=== PATIENT | female | born 1975 | race Caucasian/White ===

== ENCOUNTER 2020-02-02 21:40 | Emergency (ER) | payer MEDICAID ==
--- NOTE | 2020-02-02 22:13 | ED ---
General Adult HPI - General Source: patient Mode of arrival: ambulatory Limitations: no limitations <Kirby Zapata - Last Filed: 02/02/20 23:40> <Crissy Dunne - Last Filed: 02/04/20 01:29> - General Chief complaint: Neuro Symptoms/Deficit Stated complaint: Headache, Facial numbness Time Seen by Provider: 02/02/20 22:01 - History of Present Illness Initial comments: Patient presents the ED with her boyfriend for evaluation. Patient states that she has had worsening left-sided facial drooping since yesterday morning. Patient also states that she has had an intermittent headache since yesterday, although she denies having a headache currently. Patient denies any other area focal weakness. Patient denies trauma or injury, sudden onset of headache, LOC, neck pain or stiffness, fever or chills, visual changes, speech difficulty, dizziness, otalgia, chest pain, dyspnea, palpitations, nausea/vomiting, a bdominal pain, or any other symptoms or complaints. (Kirby aZpata) - Related Data Previous Rx's Medication Instructions Recorded amLODIPine [Norvasc] 5 mg PO DAILY #30 tab 02/03/20 predniSONE [Deltasone] 60 mg PO DAILY #6 tab 02/03/20 valACYclovir HCL [Valacyclovir] 1,000 mg PO TID #21 tab 02/03/20 Allergies Allergy/AdvReac Type Severity Reaction Status Date / Time No Known Allergies Allergy Verified 02/02/20 21:50 Review of Systems ROS Other: All systems not noted in ROS Statement are negative. <Kirby Zapata - Last Filed: 02/02/20 23:40> ROS Other: All systems not noted in ROS Statement are negative. <Crissy Dunne - Last Filed: 02/04/20 01:29> ROS Statement: Those systems with pertinent positive or pertinent negative responses have been documented in the HPI. Past Medical History Past Medical History: No Reported History History of Any Multi-Drug Resistant Organisms: None Reported Past Surgical History: Section, Tonsillectomy Additional Past Surgical History / Comment(s): basal cell carinoma removal face 2017 Past Psychological History: No Psychological Hx Reported, Anxiety Smoking Status: Former smoker Past Alcohol Use History: Rare Past Drug Use History: None Reported <Kirby Zapata - Last Filed: 02/02/20 23:40> General Exam Limitations: no limitations General appearance: alert, in no apparent distress Head exam: Present: atraumatic, normocephalic Eye exam: Present: normal appearance, PERRL, EOMI ENT exam: Present: mucous membranes moist, TM's normal bilaterally Neck exam: Present: other (No nuchal rigidity; trachea is in midline). Absent: tenderness, meningismus Respiratory exam: Present: normal lung sounds bilaterally. Absent: respiratory distress, wheezes, rales, rhonchi Cardiovascular Exam: Present: regular rate, normal rhythm, normal heart sounds, other (Normal radial pulses bilaterally) GI/Abdominal exam: Present: soft. Absent: distended, tenderness Extremities exam: Present: full ROM. Absent: tenderness, pedal edema Neurological exam: Present: alert, oriented X3, other (Cranial nerves are all intact other than a complete left facial nerve palsy with left forehead invol vement; patient has 5 out of 5 strength in all 4 extremities; patient has no sensory deficit) Psychiatric exam: Present: normal affect, normal mood Skin exam: Present: warm, dry, intact, normal color <Kirby Zapata - Last Filed: 02/02/20 23:40> Neck exam: Present: other Neurological exam: Present: other <Crissy Dunne - Last Filed: 02/04/20 01:29> Course <Kirby Zapata - Last Filed: 02/02/20 23:40> Vital Signs 02/02/20 02/02/20 02/02/20 21:43 22:56 23:47 Temperature 97.9 F Pulse Rate 100 80 87 Respiratory 20 18 18 Rate Blood Pressure 199/102 158/92 160/87 O2 Sat by Pulse 99 98 98 Oximetry 02/03/20 02/03/20 00:00 01:33 Temperature 97 F L Pulse Rate 82 78 Respiratory 16 18 Rate Blood Pressure 153/83 150/96 O2 Sat by Pulse 98 97 Oximetry - Reevaluation(s) Reevaluation #1: 02/02/20 23:47 Patient's neurological exam remains unchanged and is 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 Patient's labs are fairly unremarkable. Given the patient's abnormal noncontrast CT report, a CT angiogram head was ordered per the radiologist's recommendations. Patient was endorsed to Dr. Dunne at this time given ED shift change. Dr. Dunne to follow-up with the patient's CT angiogram head results and to take over care of the patient at this time. (Kirby Zapata) EKG Findings - EKG Comments: EKG Findings:: Normal sinus rhythm, ventricular rate of 76 bpm, no ectopy, normal IL and QRS intervals, normal QT interval, normal axis, no ST or T-wave abnormality <Kirby Zapata - Last Filed: 02/02/20 23:40> Medical Decision Making - Lab Data Result diagrams: 02/02/20 21:58 02/02/20 21:58 - Radiology Data Radiology results: report reviewed (Noncontrast head CT: Serpiginous high attenuation structures in the right frontal lobe consistent with large vascular malformation and large dural veins; there is adjacent encephalomalacia involving right frontal lobe; no acute hemorrhage; CT angiogram would be confirmatory for further evaluation if clinically indicated) <Kirby Zapata - Last Filed: 02/02/20 23:40> - Lab Data Result diagrams: 02/02/20 21:58 02/02/20 21:58 <Crissy Dunne - Last Filed: 02/04/20 01:29> - Medical Decision Making Upon shift sign out, I did evaluate the patient myself. She does present with symptoms of left complete facial paresis. Laboratory studies had been performed and the patient was sent over for CT angiogram after abnormal CT findings. Dr. Zapata did discuss the results with the patient and the need to be sent for CT angios. I did update the patient in regards to the CT angiography results. It does demonstrate a large AVM measuring 3.8 x 2.9 cm. It is at the base of the right frontal lobe above the right orbit with large draining vessels. No evidence of tumor. Adjacent right frontal lobe encephalomalacia. I then called and discussed case with Dr. Romero who is the neurointensivist liaison planner. He does recommend that the patient be transferred to for blood pressure control, MRI and angiography. I discussed the recommendations from Dr. Romero however the patient reports that she would prefer to go home at this time. I did discuss the risks of leaving without further evaluation to include permanent disability and even . She is of sound mind and capable of making her own decisions. Family is at bedside and agrees with her decision. The patient was seen during the [facility] emergency due to the Covid pandemic. The patient did understand this. I informed her of the imperative nature that she follow-up in regards to these abnormal CT findings. Dr. Romero does not believe that the patient's facial paralysis is related to the AVM and therefore to treat as a Ortega's palsy. The patient was given a dose of prednisone and Valtrex in the emergency room. I did prescribe the patient's these prescriptions as well. Blood pressure is high in the emergency room. Dr. Wolf did recommend that it be below 160. Because of this I will start patient on Norvasc. I informed her that she needs to keep a blood pressure log and follow up with her primary care physician to see if this medication needs to be adjusted. I did give her follow-up information for neurologist out of [place] as this is where she is requesting to seek care. I informed the patient that if she has any new or worsening symptoms or does agree to hospital transfer, to return to the emergency department. Patient was then discharged home in stable condition (Crissy Dunne) - Lab Data Lab Results 02/02/20 02/02/20 Range/Units 21:58 21:58 WBC 13.5 H (3.8-10.6) k/uL RBC 5.21 (3.80-5.40) m/uL Hgb 14.1 (11.4-16.0) gm/dL Hct 42.7 (34.0-46.0) % MCV 81.9 (80.0-100.0) fL MCH 27.1 (25.0-35.0) pg MCHC 33.1 (31.0-37.0) g/dL RDW 14.1 (11.5-15.5) % Plt Count 407 (150-450) k/uL Neutrophils % 68 % Lymphocytes % 21 % Monocytes % 7 % Eosinophils % 2 % Basophils % 1 % Neutrophils # 9.2 H (1.3-7.7) k/uL Lymphocytes # 2.9 (1.0-4.8) k/uL Monocytes # 0.9 (0-1.0) k/uL Eosinophils # 0.2 (0-0.7) k/uL Basophils # 0.1 (0-0.2) k/uL Sodium 138 (137-145) mmol/L Potassium 3.8 (3.5-5.1) mmol/L Chloride 104 (98-107) mmol/L Carbon Dioxide 26 (22-30) mmol/L Anion Gap 8 mmol/L BUN 12 (7-17) mg/dL Creatinine 0.73 (0.52-1.04) mg/dL Est GFR (CKD-EPI)AfAm >90 (>60 ml/min/1.73 sqM) Est GFR (CKD-EPI)NonAf >90 (>60 ml/min/1.73 sqM) Glucose 103 H (74-99) mg/dL Calcium 10.0 (8.4-10.2) mg/dL Total Bilirubin 0.4 (0.2-1.3) mg/dL AST 28 (14-36) U/L ALT 31 (4-34) U/L Alkaline Phosphatase 125 (38-126) U/L Total Protein 8.2 (6.3-8.2) g/dL Albumin 4.6 (3.5-5.0) g/dL Disposition <Kirby Zapata - Last Filed: 02/02/20 23:40> Is patient prescribed a controlled substance at d/c from ED?: No Time of Disposition: 01:27 <Crissy Dunne - Last Filed: 02/04/20 01:29> Clinical Impression: Ortega's palsy, AVM (arteriovenous malformation) Disposition: HOME SELF-CARE Condition: Stable Instructions (If sedation given, give patient instructions): Ortega Palsy (ED) Additional Instructions: I did recommend transfer to [facility]. You must follow-up with a neurosurgeon in regards to your newly diagnosed AVM. Take the blood pressure medication daily and keep a log of your measured blood pressures. Return to the emergency room for any new or worsening symptoms Prescriptions: predniSONE [Deltasone] 60 mg PO DAILY #6 tab amLODIPine [Norvasc] 5 mg PO DAILY #30 tab valACYclovir HCL [Valacyclovir] 1,000 mg PO TID #21 tab Referrals: None,Stated [Primary Care Provider] - 1-2 days Malcolm Lynn DO [REFERRING] - 1-2 days
--- NOTE | 2020-02-02 22:36 | CT ---
EXAMINATION TYPE: CT brain wo con DATE OF EXAM: 02/02/2020 COMPARISON: HISTORY: pain in head, facial numbness CT DLP: 1091.4 mGycm Automated exposure control for dose reduction was used. Exam was performed with no contrast. There is high attenuation somewhat serpiginous density in the lateral aspect of the right frontal lob e. This could be large blood vessels. Vessels measure up to 1.7 cm in diameter. There is hypodensity in the cortex right frontal lobe adjacent to the apparent large vessels. There is no midline shift. T here is no sign of intracranial hemorrhage. The calvarium is intact. IMPRESSION: Serpiginous large high attenuation structures in the right lateral frontal lobe consistent with large vascular malformation and large dural veins. There is adjacent encephalomalacia involving right fron phylicia lobe. No acute hemorrhage. CT angiogram would be confirmatory for further evaluation if clinicall y indicated.
[2020-02-02 22:38] LABS: Basophils # (A) 0.1 k/uL (0-0.2); Basophils % (A) 1 %; Eosinophils # (A) 0.2 k/uL (0-0.7); Eosinophils % (A) 2 %; HCT 42.7 % (34.0-46.0); HGB 14.1 gm/dL (11.4-16.0); Lymphocytes # (A) 2.9 k/uL (1.0-4.8); Lymphocytes % (A) 21 %; MCH 27.1 pg (25.0-35.0); MCHC 33.1 g/dL (31.0-37.0); MCV 81.9 fL (80.0-100.0); Mean Platelet Volume 7.6; Monocytes # (A) 0.9 k/uL (0-1.0); Monocytes % (A) 7 %; Neutrophils # (A) 9.2 k/uL (1.3-7.7); Neutrophils % (A) 68 %; Platelet Count 407 k/uL (150-450); RBC 5.21 m/uL (3.80-5.40); RDW 14.1 % (11.5-15.5); WBC 13.5 k/uL (3.8-10.6)
[2020-02-02 22:48] LABS: ALT 31 U/L (4-34); AST 28 U/L (14-36); African American GFR (CKD) >90 (>60 ml/min/1.73 sqM); Albumin 4.6 g/dL (3.5-5.0); Alkaline Phosphatase 125 U/L (38-126); Anion Gap 8 mmol/L; Blood Urea Nitrogen 12 mg/dL (7-17); Carbon Dioxide 26 mmol/L (22-30); Chloride 104 mmol/L (98-107); Glucose 103 mg/dL (74-99); Non-African American GFR(CKD) >90 (>60 ml/min/1.73 sqM); Potassium 3.8 mmol/L (3.5-5.1); Sodium 138 mmol/L (137-145); Total Bilirubin 0.4 mg/dL (0.2-1.3); Total Protein 8.2 g/dL (6.3-8.2)
--- NOTE | 2020-02-03 00:39 | CT ---
EXAMINATION TYPE: CT angio head neck DATE OF EXAM: 02/03/2020 COMPARISON: None HISTORY: Headache, facial numbness CT DLP: 579.10 mGycm Automated exposure control for dose reduction was used. CONTRAST: Performed with IV Contrast, patient injected with 65 mL of Isovue 370. There are 3-D post processed images. Images were obtained from the aortic arch to the vertex of the b rain with IV contrast. FINDINGS: There is normal branching pattern of the great vessels on the aortic arch. There is bilateral arteria l flow in the subclavian arteries. There is bilateral arterial flow in the common internal and back grinder al carotid arteries. There is bilateral opacification of the jugular veins. There is bilateral arteri al flow in the vertebral arteries. There is arterial flow in the vertebrobasilar artery system. There is a somewhat rounded 3.8 x 2.9 cm area of neovascularity with tangled vessels in the base of r ight posterior frontal lobe adjacent to the base of the anterior cranial fossa. There are large drain ing dural veins which measure up to 1.7 cm in diameter. These extend to the sigmoid sinus. I see no e vidence of venous thrombosis. There is no mass effect. There is a large right middle cerebral artery. There is hypodensity surrounding the large vascular malformation consistent with encephalomalacia. T here is right frontal cortical atrophy. There is no midline shift. I see no evidence of cerebral parenchymal hemorrhage. The remainder of the brain shows normal perfusion. I see no intracranial aneurysm. There is normal co ntrast opacification of the sinuses at the skull base. There is arterial flow in the anterior middle and posterior cerebral arteries. IMPRESSION: Large enhancing mass consistent with arterial venous malformation at the base of the right frontal lo be above the right orbit with large draining veins. There is a large arterial supply from the enlarge d right middle cerebral artery. There is evidence of shunt vascularity. No evidence of a tumor. There is adjacent right frontal lobe encephalomalacia consistent with shunting.
[2020-02-03] MEDS ORDERED: predniSONE 20 MG TAB PO STA (01:22)
[2020-02-03] MEDS ORDERED: valACYclovir 500 MG TAB PO STA (01:22)
[2020-02-03 01:37] VITALS: BP 150/96; PULSE 78; RESP 18; TEMP 97
== END 2020-02-03 01:36 | disposition home or self-care (01) ==
LOC: EC 21:40
DX: G51.0 Bell's palsy (principal); Q28.2 Arteriovenous malformation of cerebral vessels; G93.89 Other specified disorders of brain; Z87.891 Personal history of nicotine dependence; Z85.828 Personal history of other malignant neoplasm of skin
CPT/HCPCS: 36415; 93005; 80053; 85025; 70496; 70450; 70498; 99284; J7512; Q9967

== ENCOUNTER → 2020-02-22 | Outpatient (CLI) | payer MEDICAID | END | disposition home or self-care (01) | LOC: LABWHC1 11:59 | PROVIDERS: ATTEND Psychiatry & Neurology Vascular Neurology | DX: Z01.818 Encounter for other preprocedural examination (principal) | CPT/HCPCS: 87635 ==

== ENCOUNTER → 2020-04-23 | Outpatient (CLI) | payer MEDICAID ==
--- NOTE | 2020-04-24 05:27 | MR ---
EXAMINATION TYPE: MR brain wo/w con DATE OF EXAM: 04/23/2020 COMPARISON: CT brain 02/02/2020 HISTORY: AVM CONTRAST: Standard multiplanar, multisequence MRI departmental protocol utilizing 8 mL intravenous Gadavist minnie olinium contrast. There is a 3 x 2 cm enhancing mass involving the inferior right frontal lobe with dense enhancement c onsistent with large vascular mass. There are multiple large draining dural veins. There is adjacent atrophy and encephalomalacia involving the right frontal lobe. There is no midline shift. There is no sign of intracranial hemorrhage. Corpus callosum appears normal. Brainstem is intact. There is scott l enhancement of the venous sinuses. There is enlargement of the jugular veins consistent with shunt vascularity. The overall area of abnormality measures 8.7 x 3.8 x 5 cm. 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 No evidence of acute infarct.
--- NOTE | 2020-04-24 05:32 | MR ---
EXAMINATION TYPE: MR angio head wo con DATE OF EXAM: 04/23/2020 COMPARISON: None HISTORY: AVM MR angiographic images were obtained of the intracerebral arterial circulation. FINDINGS: There is a large tangle of vessels involving the inferior right frontal lobe related to arterial veno us malformation. There are large draining veins. There is enlargement of the right middle cerebral ar pavan compared to the left. This is consistent with shunt vascularity. The middle cerebral artery jad ures 3.8 mm. There is arterial flow in the anterior middle and posterior cerebral arteries bilaterall y. There is no mass effect. There is arterial flow in the vertebrobasilar artery system. Both intracr anial internal carotid arteries are large and consistent with shunt vascularity. There is probably si gnificant flow through the anterior communicating artery. There is no evidence of hemodynamic stenosi s. IMPRESSION: Large vascular malformation involving the inferior right frontal lobe with evidence of enlarged arter ies due to shunting. Size is unchanged compared to CT angiogram of 02/02/2020.
== END | disposition home or self-care (01) ==
LOC: RADMRIMAIN 07:20
PROVIDERS: ATTEND Radiology Radiation Oncology
DX: Q28.2 Arteriovenous malformation of cerebral vessels (principal); G93.89 Other specified disorders of brain
CPT/HCPCS: 70544; 70553; A9585

== ENCOUNTER → 2020-11-21 | Outpatient (CLI) | payer BC ==
--- NOTE | 2020-11-22 10:20 | CT ---
EXAMINATION TYPE: CT angio head neck DATE OF EXAM: 11/21/2020 HISTORY: History of right frontal AVM.. COMPARISON: CT angiogram head and neck 02/02/2020 FINDINGS: Again seen is a large arterial venous malformation involving the right inferior frontal lobe of the b rain. The arterial supply arises from the right middle cerebral artery and ultimately drains into mul tiple large dural veins draining into the right sigmoid sinus. There is encephalomalacia of the right frontal lobe with mild ex vacuo dilatation of the frontal horn of the right lateral ventricle. The posterior circulation is otherwise normal. The brachiocephalic vessels are widely patent without significant stenosis. The common, internal and external carotid arteries within the neck are widely patent without stenosis. Comparison the prior study reveals no significant interval change. IMPRESSION: Large right frontal lobe AVM as described above. There has been no interval change. No new abnormalit ies are seen.
== END | disposition home or self-care (01) ==
LOC: RADCTMAIN 16:44
PROVIDERS: ATTEND Psychiatry & Neurology Vascular Neurology
DX: I67.1 Cerebral aneurysm, nonruptured (principal)
CPT/HCPCS: 70496; 70498; Q9967

== ENCOUNTER → 2022-10-28 | Outpatient (CLI) | payer BC ==
--- NOTE | 2022-10-28 08:29 | US ---
EXAMINATION TYPE: US pelvis complete transvag DATE OF EXAM: 10/28/2022 COMPARISON: NONE CLINICAL HISTORY: N92.0 EXCESSIVE MENSTRUATION. excessive menses. TECHNIQUE: Transvaginal (TV) and Transabdominal (TA) . EXAM MEASUREMENTS: Uterus: 10.6 x 4.2 x 4.7 cm Endometrial Stripe: .7 cm Right Ovary: 4.2 x 4.8 x 3.6 cm Left Ovary: 2.9 x 2.2 x 2.1 cm 1. Uterus: Anteverted wnl 2. Endometrium: wnl 3. Right Ovary: Cystic area 3.7 x 4.3 x 3.6 cm 4. Left Ovary: Cystic area 1.5 x 2.1 x 1.6 cm 5. Bilateral Adnexa: wnl 6. Posterior cul-de-sac: wnl Urinary bladder is sonolucent. Posterior wall is normal. IMPRESSION: 1. Bilateral ovarian cysts. Follow-up is recommended.
== END | disposition home or self-care (01) ==
LOC: RADUSWWP 07:08
PROVIDERS: ATTEND Family Medicine
DX: N83.201 Unspecified ovarian cyst, right side (principal); N83.202 Unspecified ovarian cyst, left side; N92.0 Excessive and frequent menstruation with regular cycle
CPT/HCPCS: 76830; 76856

== ENCOUNTER → 2023-10-18 | Outpatient (CLI) | payer BC ==
--- NOTE | 2023-10-18 18:05 | MM ---
Reason for Exam: Screening (asymptomatic). Last mammogram was performed 1 year(s) and 11 month(s) ago. Patient History: Menarche at age 12. First Full-Term at age 28. Last menstrual period: 10/10/2023 Risk Values: Mary 5 year model risk: 1.0%. NCI Lifetime model risk: 10.0%. Prior Study Comparison: 05/13/2014 Screening Mammogram, [facility]. 12/13/2016 Screening Mammogram, [facility]. 11/20/2021 Bilateral Screening Mammogram, [facility]. Tissue Density: There are scattered fibroglandular densities. Findings: Analyzed By CAD. There is no suspicious group of microcalcifications or new suspicious mass in either breast. Overall Assessment: Negative, BI-RAD 1 Management: Screening Mammogram of both breasts in 1 year. . Patient should continue monthly self-breast exams. A clinical breast exam by your physician is recommended on an annual basis. This exam should not preclude additional follow-up of suspicious palpable abnormalities. Note on Mary scores and lifetime risk: 1. A Mary score greater than 3% is considered moderate risk. If this is the case, consider specialist referral to assess eligibility for a risk reducing agent. 2. If overall lifetime risk for the development of breast cancer is 20% or higher, the patient may qualify for future screening with alternating mammogram and breast MRI. Electronically signed and approved by: Amy Craven M.D. Radiologist
== END | disposition home or self-care (01) ==
LOC: RADMAMWWP 06:54
PROVIDERS: ATTEND Family Medicine
DX: Z12.31 Encounter for screening mammogram for malignant neoplasm of breast (principal)
CPT/HCPCS: 77067

== ENCOUNTER → 2024-03-13 | Outpatient (CLI) | payer BC ==
[2024-03-13 08:35] LABS: ALT 18 U/L (4-34); AST 20 U/L (14-36); African American GFR (CKD) >90 (>60 ml/min/1.73 sqM); Albumin 3.8 g/dL (3.5-5.0); Albumin/Globulin Ratio 1.2; Alkaline Phosphatase 117 U/L (38-126); Anion Gap 4 mmol/L; Blood Urea Nitrogen 10 mg/dL (7-17); Carbon Dioxide 26 mmol/L (22-30); Chloride 106 mmol/L (98-107); Globulin 3.2 g/dL; Glucose 97 mg/dL (74-99); Non-African American GFR(CKD) >90 (>60 ml/min/1.73 sqM); Potassium 4.5 mmol/L (3.5-5.1); Sodium 136 mmol/L (137-145); Total Bilirubin 0.4 mg/dL (0.2-1.3)
--- NOTE | 2024-03-13 13:09 | CT ---
EXAMINATION TYPE: CT brain wo con DATE OF EXAM: 03/13/2024 COMPARISON: 01/29/2022 HISTORY: 48-year-old female Q28.2, Arteriovenous malformation of cerebral vessels TECHNIQUE: Examination was done in axial plane without intravenous contrast. Coronal and sagittal r econstructions performed. CT DLP: 1137.50 mGycm Automated exposure control for dose reduction was used. FINDINGS: Redemonstrated focal volume loss anterior right frontotemporal junction with chronic encephalomalacia and extensive ectatic vascular structures an some associated calcifications. Overall size of the abn ormality is 5.4 cm AP by 4.2 cm wide by 4.6 cm craniocaudal. No other evidence of acute intracranial hemorrhage, acute ischemic changes, mass, mass-effect, or ex tra-axial fluid collection. There is no effacement of cerebral sulci or basal subarachnoid cisterns. There is no hydrocephalus. There is no midline shift. Bryant-white matter distinction is preserved. Paranasal sinuses and mastoid air cells are well pneumatized. Orbits and globes are intact. IMPRESSION: Overall similar appearance to the large AV malformation anterior right frontotemporal junction with a ssociated local parenchymal encephalomalacia. Overall size of the abnormality remains at 5.4 cm. No acute intracranial abnormality seen.
--- NOTE | 2024-03-13 13:29 | CT ---
EXAMINATION TYPE: CT angio head neck DATE OF EXAM: 03/13/2024 COMPARISON: 01/29/2022 HISTORY: 48-year-old female Q28.20, Arteriovenous malformation of cerebral vessels TECHNIQUE: Contiguous axial scanning of the head and neck performed with IV Contrast, patient injecte d with 65 mL of Isovue 370. Coronal/sagittal reconstructions performed. 3-D reconstructions generated on a dedicated independent workstation. CT DLP: 412.10 mGycm Automated exposure control for dose reduction was used. FINDINGS: Neck: Conventional arch vessel branching anatomy. Left vertebral artery as dominant. Both vertebral arteries are patent throughout the course. The bilateral common and internal carotid arteries are widely patent without significant atherosclero tic change. A few prominent cervical lymph nodes measuring up to 1.3 cm short axis remain unchanged. Head: Dominant left vertebral artery. Otherwise, both vertebral and basilar artery as well as the remainde r of the posterior circulation appear patent. Redemonstrated large arteriovenous malformation inferior right frontal lobe with small clinical vesse ls and large feeding artery arising from the right MCA. Dilated cerebral cortical vein draining into the right sigmoid sinus redemonstrated. Venous dilatation measures up to 1.7 cm, unchanged. Similar a djacent encephalomalacia of the right frontal lobe parenchyma. No other aneurysmal change seen within the anterior circulation are significant stenosis. IMPRESSION: NECK: 1. WIDELY PATENT VERTEBRAL AND CAROTID ARTERIES OF THE NECK. HEAD: 2. Known large inferior right frontal lobe AVM supplied by a branch of the right MCA and drainage via dilated (caliber up to 1.7 cm) cerebral cortical veins back into the right sigmoid sinus. 3. Similar adjacent encephalomalacia of the adjacent frontal lobe parenchyma. No new abnormality is s een.
== END | disposition home or self-care (01) ==
LOC: RADCTMAIN 06:56
PROVIDERS: ATTEND Psychiatry & Neurology Vascular Neurology
DX: G93.89 Other specified disorders of brain (principal); Q28.2 Arteriovenous malformation of cerebral vessels
CPT/HCPCS: 80053; 70496; 70450; 70498; Q9967

== ENCOUNTER → 2025-02-11 | Outpatient (CLI) | payer BC ==
--- NOTE | 2025-02-11 08:07 | MM ---
Reason for Exam: Screening (asymptomatic). Last mammogram was performed 1 year(s) and 4 month(s) ago. Patient History: Menarche at age 12. First Full-Term at age 28. Last menstrual period: 02/11/2025 Risk Values: Mary 5 year model risk: 1.1%. NCI Lifetime model risk: 9.9%. Prior Study Comparison: 12/13/2016 Screening Mammogram, [facility]. 11/20/2021 Bilateral Screening Mammogram, [facility]. 10/18/2023 Bilateral MG screening mammo w CAD, [facility]. Tissue Density: There are scattered areas of fibroglandular density. Findings: Analyzed By CAD. Right breast: There is no suspicious group of microcalcifications or new suspicious mass. Left breast: There is no suspicious group of microcalcifications or new suspicious mass. Overall Assessment: Negative, BI-RAD 1 Management: Screening Mammogram of both breasts in [address] [facility] will attempt to contact patient to return for supplemental views and ultrasound if indicated. Patient should continue monthly self-breast exams. A clinical breast exam by your physician is recommended on an annual basis. This exam should not preclude additional follow-up of suspicious palpable abnormalities. Note on Mary scores and lifetime risk: 1. A Mary score greater than 3% is considered moderate risk. If this is the case, consider specialist referral to assess eligibility for a risk reducing agent. 2. If overall lifetime risk for the development of breast cancer is 20% or higher, the patient may qualify for future screening with alternating mammogram and breast MRI. [facility], , 02/11/2025 8:03 AM. Electronically signed and approved by: Meek Self DO
== END | disposition home or self-care (01) ==
LOC: RADMAMWWP 07:01
PROVIDERS: ATTEND Nurse Practitioner Family
DX: Z12.31 Encounter for screening mammogram for malignant neoplasm of breast (principal); R92.323 Mammographic fibroglandular density, bilateral breasts
CPT/HCPCS: 77067

== ENCOUNTER → 2025-05-07 | Outpatient (CLI) | payer BC ==
--- NOTE | 2025-05-07 16:46 | US ---
EXAMINATION TYPE: US pelvis complete transvag DATE OF EXAM: 05/07/2025 COMPARISON: US 2022 CLINICAL INDICATION: Female, 49 years old with history of N93.9 ABNORMAL UTERINE AND VAGINAL BLEEDING ; TECHNIQUE: Transvaginal (TV) and Transabdominal (TA) . FINDINGS: Date of LMP: 04/19/25 EXAM MEASUREMENTS: Uterus: 9.9 x 4.3 x 4.8 cm Endometrial Stripe: 0.6 cm Right Ovary: not seen Left Ovary: 3.2 x 2.0 x 2.8 cm 1. Uterus: heterogeneous 2. Endometrium: appears wnl 3. Right Ovary: not seen due to overlying bowel gas 4. Left Ovary: 2.0cm cystic area 5. Bilateral Adnexa: wnl 6. Posterior cul-de-sac: wnl Heterogenous uterus without focal lesion. Endometrium appears within normal limits. Right ovary is no t visualized to overlying bowel gas. Left ovarian 2.0 cm cyst with low-level internal echoes. No inte rnal color flow. Peripheral color flow demonstrated. A fluid. IMPRESSION: 1. Normal thickness endometrium. 2. Left ovarian 2 cm endometrioma versus hemorrhagic cyst. Consider follow-up ultrasound in - [facility]. 3. Nonvisualization of the right ovary due to overlying bowel gas. [facility], , 05/07/2025 4:44 PM
== END | disposition home or self-care (01) ==
LOC: RADUSWWP 15:51
PROVIDERS: ATTEND Student in an Organized Health Care Education/Training Program
DX: N93.9 Abnormal uterine and vaginal bleeding, unspecified (principal)
CPT/HCPCS: 76830; 76856